=== PATIENT | female | born 1950 | race Caucasian/White ===

== ENCOUNTER 2020-12-26 14:30 | Outpatient (RCR) | payer MEDICARE, SELFPAY ==
[2020-11-01 11:26] VITALS: BMI 42.0
[2020-11-01 11:27] VITALS: BMI 42.0
== END 2021-01-14 12:26 | disposition home or self-care (01) ==
LOC: ANHDMC 14:30
PROVIDERS: PCP Family Medicine; Visit Provider Internal Medicine Endocrinology, Diabetes & Metabolism
DX: E11.65 Type 2 diabetes mellitus with hyperglycemia (principal); Z79.4 Long term (current) use of insulin; Z71.89 Other specified counseling; Z71.3 Dietary counseling and surveillance
CPT/HCPCS: 97802; G0108; G0109

== ENCOUNTER 2021-03-08 10:30 | Outpatient (RCR) | payer MEDICARE, SELFPAY ==
[2021-01-29 11:06] VITALS: BMI 42.0
== END 2021-03-08 12:07 | disposition home or self-care (01) ==
LOC: ANHDMC 10:30
PROVIDERS: PCP Family Medicine; Visit Provider Internal Medicine Endocrinology, Diabetes & Metabolism
DX: E11.65 Type 2 diabetes mellitus with hyperglycemia (principal); Z79.4 Long term (current) use of insulin; Z71.3 Dietary counseling and surveillance; Z71.89 Other specified counseling
CPT/HCPCS: 97803; G0108

== ENCOUNTER 2022-03-12 12:14 | Outpatient (CLI) | payer MEDICARE, SELFPAY ==
--- NOTE | ~2022-03-12 | US_ITS ---
EXAMINATION: US FNA w image guidance, US FNA additional DATE: 03/12/2022 13:48 INDICATION: Biopsy requested bilateral thyroid nodules TECHNIQUE: A time-out was performed to verify the patient's name, date of , and procedure to be performed . The procedure and its benefits and risks were discussed with the patient. Risks specifically discus sed included bleeding and infection. The patient understood the risks and agreed to proceed. A poultry helper sonographic images were obtained and compared with the prior outside institution ultrasound images. T he neck overlying both the inferior left and right thyroid lobes was prepped and draped in the usual sterile manner. Attention was first turned to the left thyroid nodule. 3 mL 1% lidocaine was used fo r local anesthesia. 6 passes were made with a 25G needle into the lesion. Appropriate needle locati on was documented with continuous sonographic guidance. Attention was then sent to the smaller right thyroid nodule. An additional 3 mL 1% lidocaine was used for local anesthesia. 6 passes were made wi th a 25G needle into the lesion. Appropriate needle location was documented with continuous sonograp hic guidance. Sterile bandages were applied. There were no immediate complications. FINDINGS: Grayscale ultrasound images redemonstrate bilateral thyroid nodules. The right the nodules unchanged 1.3 cm wider than tall solid isoechoic nodule without echogenic foci. The larger nodule on the left w hich was measured as a 3.0 cm nodule is actually comprised of 2 similar sized and similar-appearing s olid hypoechoic nodules, the more cephalad at the mid gland measuring 1.8 x 1.7 x 1.6 cm and the larg er and more inferior nodule measuring 2.1 x 1.8 x 1.9 cm. The larger and more caudal nodule was chose n for biopsy. Subsequent images demonstrate needles advanced first into the largest 2.1 cm nodule at the inferior left thyroid and subsequently to the smaller 1.3 cm nodule at the inferior right thyroid . IMPRESSION: 1. Successful ultrasound-guided fine needle aspiration of the largest 2.1 cm nodule at the inferior left thyroid. Of note this is separate from a slightly smaller similar-appearing nodule which abuts t he cephalad margin in the mid left thyroid. Both nodules were measured together as a single nodule on the prior outside institution ultrasound. 2. Successful ultrasound-guided fine-needle aspiration of a 1.3 cm solid hypoechoic nodules at the in ferior right thyroid. Reviewed, dictated and finalized at location [facility] IMPRESSION: 1. Successful ultrasound-guided fine needle aspiration of the largest 2.1 cm n odule at the inferior left thyroid. Of note this is separate from a slightly sm aller similar-appearing nodule which abuts the cephalad margin in the mid left thyroid. Both nodules were measured together as a single nodule on the prior [facility] ultrasound. 2. Successful ultrasound-guided fine-needle aspiration of a 1.3 cm solid hypoec hoic nodules at the inferior right thyroid.
== END 2022-03-12 12:15 | disposition home or self-care (01) ==
PROVIDERS: Visit Provider Nurse Practitioner Family
DX: E04.2 Nontoxic multinodular goiter (principal)
CPT/HCPCS: 10005; 10006; 88173; 88305